=== PATIENT | female | born 1980 | race Caucasian/White ===

== ENCOUNTER 2017-04-05 16:38 | Emergency (ER) | payer MEDICAID ==
[~2017-04-05] VITALS: Ht 154.9 cm; Wt 96.8 kg
[2017-04-05 16:54] VITALS: BP 137/90
== END 2017-04-05 18:30 | disposition home or self-care (01) ==
LOC: ED 18:20
DX: L02.214 Cutaneous abscess of groin (principal)
CPT/HCPCS: 99283

== ENCOUNTER 2017-12-02 08:17 | Emergency (ER) | payer MEDICAID ==
[~2017-12-02] VITALS: Ht 154.9 cm; Wt 92.0 kg
[2017-12-02 08:19] VITALS: BP 116/72
== END 2017-12-02 09:15 | disposition home or self-care (01) ==
LOC: ED 09:10
DX: J02.8 Acute pharyngitis due to other specified organisms (principal); B97.89 Other viral agents as the cause of diseases classified elsewhere; J01.10 Acute frontal sinusitis, unspecified
CPT/HCPCS: 99283

== ENCOUNTER 2018-07-23 12:28 | Emergency (ER) | payer MEDICAID ==
[~2018-07-23] VITALS: Ht 154.9 cm; Wt 102.4 kg
[2018-07-23 13:01] VITALS: BP 125/90
== END 2018-07-23 14:54 | disposition home or self-care (01) ==
LOC: ED 13:31
DX: K05.00 Acute gingivitis, plaque induced (principal); F17.200 Nicotine dependence, unspecified, uncomplicated; J45.909 Unspecified asthma, uncomplicated
CPT/HCPCS: 36415; 87102; 87806; 99283; G0475

== ENCOUNTER 2019-07-24 10:18 | Emergency (ER) | payer MEDICAID ==
[~2019-07-24] VITALS: Ht 154.9 cm; Wt 97.0 kg
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
[2019-07-24 11:37] VITALS: BP 138/74
--- NOTE | 2019-07-24 11:37 | NUR ---
PT FIT W/ KNEE IMMOBILIZER, ADJUSTED FOR COMFORT. REVIEWED DISCHARGE INSTRUCTIONS AND PRESCRIPTION W/ PT, VERBALIZED UNDERSTANDING TO INFORMATION PROVIDED INCLUDING FOLLOW UP CARE, RETURN PRECAUTIONS AND USE OF IMMOBILIZER, DENIED QUESTIONS/CONCERNS. PT AMBUALTED FROM ED W/ FRIEND, NO DIFFICULTY AMBULATING NOTED.
== END 2019-07-24 11:40 | disposition home or self-care (01) ==
LOC: ED 11:06
DX: G89.29 Other chronic pain (principal); M25.562 Pain in left knee; F17.200 Nicotine dependence, unspecified, uncomplicated; J45.909 Unspecified asthma, uncomplicated
CPT/HCPCS: 29505; 99283

== ENCOUNTER 2019-08-17 11:13 | Emergency (ER) | payer MEDICAID ==
[~2019-08-17] VITALS: Ht 154.9 cm; Wt 97.2 kg
[2019-08-17 11:36] VITALS: BP 112/64
== END 2019-08-17 12:46 | disposition home or self-care (01) ==
LOC: ED 12:25
DX: B34.9 Viral infection, unspecified (principal); J45.909 Unspecified asthma, uncomplicated; F17.200 Nicotine dependence, unspecified, uncomplicated
CPT/HCPCS: 71046; 99283

== ENCOUNTER 2020-03-23 17:05 | Emergency (ER) | payer MEDICAID ==
[~2020-03-23] VITALS: Ht 154.9 cm; Wt 89.0 kg
--- NOTE | 2020-03-23 17:42 | NUR ---
PT. IS A & O X 4 WITH A GCS OF 15. PUPILS ARE LOUIS. PT. HAS C/O SINUS HEADACHE PAIN AND PRESSURE X 3 DAYS. PT. REPORTS THE PAIN RADIATES TO HER RIGHT EAR. SHE STATES THAT SHE HAS CHRONIC SINUS INFECTIONS. PT. MOVES ALL EXTREMITIES WITHIN NORMAL LIMITS. LUNGS ARE CTA THROUGHOUT. CHEST RISE AND FALL IS SYMMETRICAL WITH RESPIRATIONS EUPNEIC. HER NECK IS MIDLINE WITHOUT JVD NOTES. S1 S2 HEARD WITHOUT MURMURS, RUBS OR GALLOPS. PT. IS PINK, WARM AND DRY WITH PULSES +2 THROUGHOUT. CAP REFILL IS BRISK, LESS THAN 3 SECONDS. PT. IS RESTING WITH THE SIDERAILS UP X 2 AND THE CALL LIGHT IS IN PLACE. REPORT GIVEN TO MIKI OLSON.
--- NOTE | 2020-03-23 17:52 | NUR ---
REPORT RECEIVED FROM WESLEY MONDRAGON. PLAN OF CARE DISCUSSED
--- NOTE | 2020-03-23 18:48 | NUR ---
NO ER PROVIDER HAS SEEN PATIENT YET, NO ORDERS AT THIS TIME.
[2020-03-23 18:58] VITALS: BP 101/79
--- NOTE | 2020-03-23 19:05 | NUR ---
ER IN ROOM FOR EVAL
--- NOTE | 2020-03-23 19:32 | NUR ---
Patient given discharge instructions and they have confirmed that they understand the instructions. Patient ambulatory with steady gait.
== END 2020-03-23 19:34 | disposition home or self-care (01) ==
LOC: ED 19:10
DX: J06.9 Acute upper respiratory infection, unspecified (principal); J45.909 Unspecified asthma, uncomplicated; R51 Headache; R50.9 Fever, unspecified; H92.02 Otalgia, left ear
CPT/HCPCS: 99283